=== PATIENT | female | born 1980 | race Caucasian/White ===

== ENCOUNTER 2019-02-04 01:31 | Emergency (ER) | payer MEDICAID ==
[~2019-02-04] VITALS: Ht 167.6 cm; Wt 69.6 kg
[2019-02-04 01:37] VITALS: BP 138/92
[2019-02-04] MEDS ORDERED: HYDROcodone/acetaminophen 5mg/325mg tablet PO ONE (02:15)
[2019-02-04] MEDS ORDERED: HYDR-4383 PO (02:19)
== END 2019-02-04 02:59 | disposition home or self-care (01) ==
LOC: ER 01:32
DX: S52.591A Other fractures of lower end of right radius, initial encounter for closed fracture (principal); Z79.899 Other long term (current) drug therapy; W18.39XA Other fall on same level, initial encounter; Y93.89 Activity, other specified; Y92.89 Other specified places as the place of occurrence of the external cause; Y99.8 Other external cause status
CPT/HCPCS: 29125; 73110; 99283